=== PATIENT | male | born 1960 | race Caucasian/White ===

== ENCOUNTER 2017-03-06 14:33 | Emergency (ER) | payer BC ==
[2017-03-06 14:38] VITALS: RESP 18
--- NOTE | 2017-03-06 15:04 | ED ---
Skin/Abscess/FB HPI - General Chief complaint: Skin/Abscess/Foreign Body Stated complaint: left leg infection Time Seen by Provider: 03/06/17 14:42 Source: patient, RN notes reviewed Mode of arrival: ambulatory Limitations: no limitations - History of Present Illness Initial comments: This is a 56-year-old male with a history of peripheral edema who has been on Lasix prescribed by his doctor and he is having improvement of his right leg but he states he is having minimal improvement to his left leg he has an open draining wound in the posterior aspect of the lower left leg. He has some discomfort in the calf area he states he normally tries walking 3 miles a day these have an the drainage and now localized erythema around the wound. He denies any overt fevers chills or sweats he was noted have an elevated temperature today be states his normal temperature can be as high as 99 or 100 he states he was doing a lot of running around today and he does get elevated temperatures with the activity he did. He denies smoking. He has no complaints of fevers chills nausea vomiting sweats no abdominal pain. He does state he was scheduled to have a venous Doppler of his left lower extremity next week. - Related Data Home Medications Medication Instructions Recorded Confirmed Furosemide [Lasix] 40 mg PO BID 03/06/17 03/06/17 Metolazone [Zaroxolyn] 5 mg PO DAILY 03/06/17 03/06/17 Naproxen [Naprosyn] 500 mg PO Q12H PRN 03/06/17 03/06/17 Potassium Chloride ER [K-Dur 10] 20 meq PO DAILY 03/06/17 03/06/17 Valsartan/Hydrochlorothiazide 1 tab PO DAILY 03/06/17 03/06/17 [Valsartan-Hctz 320-25 mg Tab] cloNIDine HCL [Catapres] 0.1 mg PO BID 03/06/17 03/06/17 Previous Rx's Medication Instructions Recorded Amoxic-Pot Clav 875-125Mg 1 tab PO Q12HR #20 tablet 03/06/17 [Augmentin 875-125] Allergies Allergy/AdvReac Type Severity Reaction Status Date / Time No Known Allergies Allergy Verified 03/06/17 15:05 Review of Systems ROS Statement: Those systems with pertinent positive or pertinent negative responses have been documented in the HPI. ROS Other: All systems not noted in ROS Statement are negative. Past Medical History Past Medical History: Hypertension History of Any Multi-Drug Resistant Organisms: None Reported Additional Past Surgical History / Comment(s): tendon lengthening in legs as child, bone spurs removed Past Psychological History: No Psychological Hx Reported Smoking Status: Never smoker Past Alcohol Use History: Occasional Past Drug Use History: None Reported General Exam - General Exam Comments Initial Comments: This is a well-developed well-nourished awake alert oriented 3 male Limitations: no limitations General appearance: alert, in no apparent distress Head exam: Present: atraumatic, normocephalic, normal inspection Eye exam: Present: normal appearance, PERRL, EOMI. Absent: scleral icterus, conjunctival injection, periorbital swelling ENT exam: Present: normal exam, mucous membranes moist Neck exam: Present: normal inspection. Absent: tenderness, meningismus, lymphadenopathy Respiratory exam: Present: normal lung sounds bilaterally. Absent: respiratory distress, wheezes, rales, rhonchi, stridor Cardiovascular Exam: Present: regular rate, normal rhythm, normal heart sounds. Absent: systolic murmur, diastolic murmur, rubs, gallop, clicks Extremities exam: Present: full ROM, tenderness, normal capillary refill, pedal edema, other (Stasis dermatitis in both lower extremities are is open wounds over the posterior aspect the lower left leg with some weeping noted. Localized erythema with minimal increased localized temperature noted. The total size of the wound is approximately 1/2% total body surface area there is some mild calf tenderness on the left none on the right.) Back exam: Present: normal inspection Neurological exam: Present: alert, oriented X3, CN II-XII intact Psychiatric exam: Present: normal affect, normal mood Skin exam: Present: warm, dry. Absent: intact, normal color (As stated above) Course Vital Signs 03/06/17 03/06/17 14:34 14:38 Temperature 100.7 F H Pulse Rate 102 H Respiratory 18 Rate Blood Pressure 215/103 195/85 O2 Sat by Pulse 99 Oximetry - Reevaluation(s) Reevaluation #1: 03/06/17 16:15 I did do patient education with the patient regarding using peroxide on the wound and a proper wound care. Medical Decision Making - Medical Decision Making I did discuss findings with the patient the presentation is consistent with localized cellulitis the wound is secondary to the hydraulic pressure from the edema. Patient be discharged on antibiotics with instructions elevation of his leg follow-up with his doctor and return when necessary - Radiology Data Radiology results: report reviewed (I did review the imaging and reports no evidence of DVT.), image reviewed Disposition Clinical Impression: Cellulitis of right leg, Wound of right leg Disposition: HOME SELF-CARE Condition: Good Instructions: Cellulitis (ED) Prescriptions: Amoxic-Pot Clav 875-125Mg [Augmentin 875-125] 1 tab PO Q12HR #20 tablet Referrals: Boubacar Vincent MD [Primary Care Provider] - 1-2 days
--- NOTE | 2017-03-06 16:10 | US ---
EXAMINATION TYPE: US venous doppler duplex LE LT DATE OF EXAM: 03/06/2017 3:17 PM COMPARISON: NONE CLINICAL HISTORY: Pain. Infection left lower leg SIDE PERFORMED: left TECHNIQUE: The lower extremity deep venous system is examined utilizing real time linear array sonog malena with graded compression, doppler sonography and color-flow sonography. VESSELS IMAGED: External Iliac Vein (EIV) Common Femoral Vein Deep Femoral Vein Greater Saphenous Vein * Femoral Vein Popliteal Vein Small Saphenous Vein * Proximal Calf Veins (* superficial vessels) Left Leg: Technical limitations due to patient's body habitus, NO evidence of DVT IMPRESSION: No deep venous thrombosis by ultrasound left lower extremity.
[2017-03-06 16:33] VITALS: BP 162/89; PULSE 95
[2017-03-06 16:36] VITALS: TEMP 99.8
== END 2017-03-06 16:36 | disposition home or self-care (01) ==
LOC: EC 14:33
DX: S80.921A Unspecified superficial injury of right lower leg, initial encounter (principal); L03.115 Cellulitis of right lower limb; I10 Essential (primary) hypertension; Z79.899 Other long term (current) drug therapy
CPT/HCPCS: 99283

== ENCOUNTER → 2023-03-24 | Outpatient (CLI) | payer BC ==
--- NOTE | 2023-03-24 12:54 | US ---
EXAMINATION TYPE: US venous doppler duplex LE DATE OF EXAM: 03/24/2023 12:41 PM COMPARISON: NONE CLINICAL INDICATION: Male, 62 years old with history of R60.0 LOCALIZED EDEMA; SIDE PERFORMED: Bilateral TECHNIQUE: The lower extremity deep venous system is examined utilizing real time linear array sonog malena with graded compression, doppler sonography and color-flow sonography. VESSELS IMAGED: Common Femoral Vein Deep Femoral Vein Greater Saphenous Vein * Femoral Vein Popliteal Vein Small Saphenous Vein * Proximal Calf Veins (* superficial vessels) Right Leg: Negative for DVT Left Leg: Negative for DVT Limited due to large patient body habitus IMPRESSION: Grayscale, color doppler, spectral doppler imaging performed of the deep veins of the lo wer extremities. There is normal flow, compressibility, vascular waveforms.
== END | disposition home or self-care (01) ==
LOC: RADUSWWP 12:19
PROVIDERS: ATTEND Internal Medicine
DX: R60.0 Localized edema (principal)
CPT/HCPCS: 93970